=== PATIENT | female | born 1960 | race Caucasian/White ===

== ENCOUNTER 2018-02-22 07:08 | Inpatient (IN) | payer BC ==
[2018-01-31 13:41] VITALS: BMI 39.0
--- NOTE | 2018-02-09 08:17 | History and Physical ---
History & Physical Date of Service Feb 09, 2018. History & Physical PROCEDURE: Left knee replacement. HISTORY OF PRESENT ILLNESS: The patient is a angi 57-year-old female who presents for preop evaluation prior to left knee replacement. She states she has been having pain in this knee for several years now, which has gradually worsened and is now affecting her ADLs including walking, standing and using stairs. She takes oral anti-inflammatories with no relief, has tried viscosupplementation without relief including Synvisc One. She also had a previous knee arthroscopy. At this point in time, she has failed conservative measures and after discussing further care, elected to proceed with a left knee replacement. PAST MEDICAL HISTORY: 1. Diabetes. 2. High cholesterol. 3. Hypertension. 4. Hypothyroidism. ALLERGIES: 1. DEMEROL CAUSES HER TO FAINT. 2. PENICILLIN CAUSES HIVES. 3. SULFA CAUSES HIVES. CURRENT MEDICATIONS: 1. Metformin 500 mg b.i.d. 2. Atorvastatin 10 mg daily. 3. Mirtazapine 30 mg daily. 4. Irbesartan 150 mg daily. 5. Levothyroxine 100 mcg daily. PAST SURGICAL HISTORY: 1. Tonsillectomy. 2. Breast biopsy. 3. Previous knee arthroscopies. 4. Tubal ligation. 5. Rectal surgery. 6. Right knee replacement 2016 FAMILY HISTORY: Noncontributory. SOCIAL HISTORY: She denies a history of smoking or tobacco use. No alcohol consumption. REVIEW OF SYSTEMS: Otherwise negative. Please see HPI for pertinent positives. PHYSICAL EXAMINATION: GENERAL: Angi 57-year-old female, in no acute distress, alert and oriented x3. VITAL SIGNS: She is 5 feet 2 inches, weighs 233 pounds. BMI is 42. Blood pressure is 144/82, pulse 74, and O2 sat 96%. HEENT: Normocephalic, atraumatic. CARDIAC: Regular rate and rhythm. No murmurs or gallops appreciated. Resting pulse 74 beats minute. LUNGS: Clear to auscultation without rales or wheeze bilaterally. ABDOMEN: Soft, nontender. Bowel sounds present. EXTREMITIES: Left lower extremity is neurovascularly intact. Calves are soft and nontender. DP pulse +2 demonstrates good quad tone. Straight leg raise without lag. There is no erythema or warmth. Has mild effusion. Positive crepitation with motion, range of motion is 0/3/115. knee is ligamentously stable. IMAGING: Reviewed of the left knee shows findings consistent with degenerative joint disease including joint space narrowing, subchondral sclerosis, and peripheral osteophytes noted. Joint space narrowing most pronounced in the medial compartment and patellofemoral joint. IMPRESSION: 1. Left knee degenerative joint disease. 2. Type 2 diabetes. 3. Hypertension. 4. Hypothyroidism. PLAN: Further care discussed with patient. At this point, failed conservative measures and would like to proceed with a left knee replacement. We will place on aspirin 81 mg p.o. b.i.d. for a month postop. We will also make arrangements for community mental health social worker for home health physical therapy for 2 weeks post-op.
[2018-02-22] VITALS (7 sets, daily range): BP systolic 96–149; BP diastolic 58–79; PULSE 53–74; TEMP 36.3–36.9; O2SAT 92–96; Ht 158.8 cm; Wt 100.0 kg
[~2018-02-22] VITALS: Ht 158.8 cm; Wt 100.0 kg
[2018-02-22] MEDS: TRANEXAMIC ACID INJ 1,000 MG x 2 Bags IV SCH ×4 (06:30→10:34)
[~2018-02-22 07:08] MED LIST: ACETAMINOPHEN 500 MG TAB PO SCH; ATOR10TA82 PO; CLINDAMYCIN 600 MG/54 ML D5W 54 ML IV SCH; CeleBREX 200 MG CAP PO SCH; DEXAMETHASONE 4 MG TAB PO SCH; DICL1SOL6 EX; ELUX1TAB PO; FAMOTIDINE 20 MG TAB PO SCH; GABAPENTIN 600 MG PO SCH; IRBE-37 PO; LACTATED RINGER'S 1000ML 1,000 ML IV SCH; LACTATED RINGER'S 1000ML 500 ML IV SCH; LEVO100C2 PO; METF750T PO; METOCLOPRAMIDE HCL 10 MG TAB PO SCH; MIRT30TA2 PO; ROPIVACAINE 5MG/ML 30 ML 150 MG, BUPIVACAINE 0.5% MPF INJ 30 ML, EpINEphrine HCL INJ 0.... INFIL SCH
--- NOTE | 2018-02-22 08:15 | History & Physical Bridge Note ---
H&P Re-Evaluation Bridge Note: I have examined the patient, reviewed the History & Physical and in the interval since the performance of the History & Physical I have noted the following changes of clinical significance: No changes noted
[2018-02-22] MEDS ORDERED: ORTHO JOINT ANESTHETIC ONE (10:04)
[2018-02-22] MEDS ORDERED: POVIDONE-IODINE OP SOLN 30 ML BTL ONE (10:05)
[2018-02-22] MEDS ORDERED: BACITRACIN 50000 UNIT VIAL ONE (10:05)
[2018-02-22] MEDS ORDERED: PROPOFOL IV EMULSION 10 MG/ML 20 ML VIAL ONE ×2 (10:18→12:50)
[2018-02-22] MEDS ORDERED: LIDOCAINE HCL 2% 2 ML VIAL (20MG/ML) ONE (10:18)
[2018-02-22] MEDS ORDERED: MIDAZOLAM HCL 1 MG/ML 2ML VIAL ONE ×3 (10:18→11:49)
[2018-02-22] MEDS ORDERED: FENTANYL CITRATE INJ 50 MCG/1 ML 2 ML VIAL ONE (10:19)
[2018-02-22] MEDS ORDERED: ROPIVACAINE 0.5% 5 MG/ML 30 ML VIAL ONE (10:31)
[2018-02-22] MEDS ORDERED: ATROPINE SULFATE 0.1 MG/ML 5ML SYR IV PRN (10:45)
[2018-02-22] MEDS ORDERED: PHENYLEPHRINE 100MCG/ML 5ML SYR IV PRN (10:45)
[2018-02-22] MEDS ORDERED: ONDANSETRON INJ 2 MG/ML 2 ML VIAL IV PRN ×2 (10:45→13:00)
[2018-02-22] MEDS ORDERED: EpHEDrine SULFATE INJ 50 MG/ML AMP IV PRN (10:45)
[2018-02-22] MEDS ORDERED: KETOROLAC TROMETHAMINE 30 MG/ML VIAL IV. PRN (10:45)
[2018-02-22] MEDS ORDERED: HYDROmorphone INJ 2 MG/ML SYR/VIAL IV PRN (10:45)
--- NOTE | 2018-02-22 12:08 | [facility] Post Operative Brief Note ---
Immediate Operative Summary Operative Date Feb 22, 2018. Pre-Operative Diagnosis Degenerative Joint Disease, Left Knee Post-Operative Diagnosis Degenerative Joint Disease, Left Knee Procedure(s) Performed Left Total Knee Arthroplasty utilizing Clayton nephPurplu nonblock journey to size 4 femur 3 tibia 9 [place] [address] Sangeetha Altman Permaculture Designer Surgeon(s) Sangeetha Valiente PA-C Estimated Blood Loss 10cc Findings Consistent with Post-Op Diagnosis Specimens a. Bone and Tissue, Left Knee Anesthesia Type General Regional Disposition Disposition: Recovery Room / PACU Overlapping Procedure I was present for: the critical portions of procedure. I was immediately available: during the entire case Back up surgeon: was not required during procedure
--- NOTE | 2018-02-22 12:09 | [facility] Operative Report ---
Operative Report Operative Date Feb 22, 2018. Pre-Operative Diagnosis Degenerative Joint Disease, Left Knee Post-Operative Diagnosis Degenerative Joint Disease, Left Knee Procedure(s) Performed Left Total Knee Arthroplasty utilizing Clayton nephLiveLeaf nonblock journey to size 4 femur 3 tibia 9 Morena [address] Sangeetha Altman Blister Packaging Machine Operator Surgeon(s) Sangeetha Valiente PA-C Estimated Blood Loss 10cc Findings Patient presents with severe end-stage tricompartmental degenerative joint disease left knee with no response to conservative therapy time surgery noted and subchondral sclerosis cystic changes osteophytes eburnated bone on bone pseudo-ligamentous laxity of medial compartment patellofemoral crepitation medial and lateral joint line pain and tenderness with a moderate to large joint effusion Specimens a. Bone and Tissue, Left Knee Anesthesia Type General Regional Complication(s) none Disposition Recovery Room / PACU Indications Patient presents with ongoing complaints of left knee pain after failed attempts at conservative management including physical therapy anti- inflammatories relative rest activity modification corticosteroid injection viscous limitations she has previously undergone successful right total knee arthroplasty quite pleased with this she presents today for left total knee arthroplasty Description of Procedure After proper prepping and draping of the left lower extremity anterior midline incision was made over the region of the extensor extensor mechanism after meticulous hemostasis was obtained and maintained in subcutaneous tissues a medial parapatellar incision was made The patella was subluxed lateralward the medial lateral gutter were cleaned from any hypertrophic synovitis and scar tissue of the distal femoral block was placed and the distal femoral osteotomy cut was made subsequently the chamfers anterior and posterior osteotomy cuts were made utilizing the 4-in-1 block the tibia was subsequently subluxed anteriorward medial and ateral meniscal remnants were excised in their entirety remnants of the anterior and posterior cruciate ligaments were excised in their entirety excellent exposure of the proximal tibia was obtained the tibial osteotomy guide was placed on the proximal tibial osteotomy cut was made once again the knee was irrigated with copious amounts of sterile saline solution the patella was subsequently everted lateralward thickened scar tissue around the patella was removed the patella was subsequently cut utilizing a freehand technique and was drilled prepared for final preparation and placement of patella socially flexion-extension gaps were checked and the equal and symmetric trials were placed to the appropriate femoral and tibial trials with poly-spacer being placed for equal flexion and extension gaps and full range of motion including extension to 0 and flexion to 140 the trial components after having been taken to recovery range of motion was subsequently removed meticulous hemostasis was obtained and maintained subsequently a knee block injection of joint cocktail including ropivacaine 0.5% 150 mg. Bupivacaine 0.5 % epinephrine 1-200,030 mL's toradol 30 mg dexamethasone 4 mg ketamine 10 mg clonidine 100 micrograms normal saline solution 30 mg was infiltrated into the soft tissues of the posterior knee medial lateral gutters and periosteal synovium special attention was paid to protect neurovascular structures at all times subsequently trial components having been removed the knee was irrigated with sterile saline solution. debris was removed the proximal tibia was subsequently prepared and was made ready for the placement of the tibial component tibial component was also cemented and tamped into position the femoral component was subsequently placed and cemented in the position the patellar component was subsequently cemented in position because hemostasis once again obtained and maintained wound having been thoroughly irrigated with debridement and debridement lavage was performed as well as a medial parapatellar incision closed with #1 Vicryl in interrupted fashion subcutaneous was closed with #2 Vicryl skin was closed with skin clips. PA-C was necessary for prepping and drapping as well as wound closure of deep fascia Sub cutaneous tissue and skin and was necessary for the case. A sterile compressive dressing was placed patient was taken to recovery in stable condition of report dictated by Agapito I attest to the content of the Intraoperative Record and any orders documented therein. Any exceptions are noted below. I attest to the content of the Intraoperative Record and any orders documented therein. Any exceptions are noted below.
[2018-02-22] MEDS ORDERED: BISACODYL 10 MG SUPP PR PRN (13:00)
[2018-02-22] MEDS ORDERED: MoRPHine SULFATE 2 MG/ML CARP IV PRN (13:00)
[2018-02-22] MEDS ORDERED: ALUMINUM/MAGNESIUM/SIMETH (MAALOX MAX) 30 ML UDC PO PRN (13:00)
[2018-02-22] MEDS ORDERED: MAGNESIUM HYDROXIDE SUSP 30 ML UDC PO PRN (13:00)
--- NOTE | 2018-02-22 13:19 | DIAGNOSTIC IMAGING REPORT ---
L KNEE 1 OR 2 VIEWS ROUTINE CLINICAL HISTORY: AP/LATERAL IN PACU LEFT KNEE COMPARISON: None. DISCUSSION: Anatomic alignment post total left knee arthroplasty. Good contact between prosthetic and underlying bone. Surgical drains are in position. Expected soft tissue postoperative change IMPRESSION: Anatomic alignment post total left knee arthroplasty. The above report was generated using voice recognition software. It may contain grammatical, syntax or spelling errors. Electronically signed by: aDniele Yusuf M.D. 02/22/2018 1:17 PM Dictated Date/Time: 02/22/2018 1:14 PM
[2018-02-22] MEDS ORDERED: PHARMACY GLYCEMIC MGMT CONSULT PRN (13:22)
--- NOTE | 2018-02-22 13:42 | Anesthesiology Progress Note ---
Anesthesia Post Op Note Date & Time Feb 22, 2018 at 13:42 Vital Signs Pain Intensity: 0 Vital Signs Past 12 Hours Date Time Temp Pulse Resp B/P (MAP) Pulse Ox O2 Delivery O2 Flow Rate FiO2 02/22/18 13:20 36.4 76 16 123/64 96 Nasal Cannula 2 02/22/18 13:10 79 16 137/66 97 Nasal Cannula 2 02/22/18 13:00 77 16 122/70 97 Nasal Cannula 2 02/22/18 12:51 36.6 84 16 130/67 98 Oxymask 10 02/22/18 07:58 36.6 58 16 149/74 96 Room Air Notes Mental Status: alert / awake / arousable, participated in evaluation Pt Amnestic to Procedure: Yes Nausea / Vomiting: adequately controlled Pain: adequately controlled Airway Patency, RR, SpO2: stable & adequate BP & HR: stable & adequate Hydration State: stable & adequate Anesthetic Complications: no major complications apparent
[2018-02-22] MEDS ORDERED: INSULIN GLARGINE SOLOSTAR 100 UNITS/ML 3 ML PEN SC ONE (14:00)
--- NOTE | 2018-02-22 14:11 | Pharmacy Progress Note ---
Glycemic Control Intl Consult Date of Service Feb 22, 2018. Scope Glycemic Pharmacist consulted by Arsh Valiente on 02/22 for glycemic control and to write orders per [facility] inpatient glycemic control protocol Objective Weight (Kilograms): 100 Accuchecks BSG (last 24hrs): Test 02/22/18 07:50 02/22/18 12:55 Bedside Glucose 108 mg/dl (70-90) 124 mg/dl (70-90) Recent Pertinent Medications Outpatient Anti-diabetic Regimen: * Metformin ER 750 mg po daily * A1c = 9.1 % on 12/07/17 Risk Factors for Insulin Resistance: * Steroids: Dexamethasone 8 mg po x1 plus dexamethasone in ortho mix x1 * Recent Surgery: POD 0 s/p L TKA * Diet: T2DM Assessment & Plan ASSESSMENT: * 57 yo F with poorly controlled T2DM on single oral diabetes agent at home now post-op TKA and steroid administration * Tighter glycemic control post-op desired - would ideally like all BSG's to be 100-140 mg/dL * Will give Lantus x1 today at moderate to severe stress weight-based 1/2 daily estimate per calculator. Additional Lantus tonight for BSG > 160 mg/dL * Will initiate Novolog at severe stress weight-based estimate per calculator 2nd steroid use. Two overnight checks. PLAN FOR INPATIENT GLYCEMIC CONTROL: * Holding outpatient oral diabetes medications * Basal insulin with LANTUS 20 units SQ x1 now. Additional 10 units tonight @ 0000 for BSG > 160 mg/dL * Correctional Insulin with NOVOLOG per scale ACHS or Q6hrs while NPO - two overnight checks * Goal Range: Low 120 mg/dL - High 150 mg/dL * Correction Factor: 15 mg/dL/unit * Nutritional / Prandial insulin per carb ratio of 1 unit per 5 grams CHO consumed * Please note that the plan above was derived based on current level of insulin resistance and hospital stress. These recommendations are appropriate for inpatient admission only. Plan of care upon discharge will need to be reassessed to avoid potential outpatient hypo/hyperglycemia. Thank you.
[2018-02-22] MEDS: KETOROLAC TROMETHAMINE 30 MG/ML VIAL IV. SCH ×2 (16:02→21:40)
[2018-02-22] MEDS: FERROUS GLUCONATE 324 MG TAB PO SCH (17:42)
[2018-02-22] MEDS: SODIUM CHLORIDE 0.9% 1000ML 1,000 ML IV SCH (17:51)
[2018-02-22] MEDS: INSULIN ASPART 100 UNITS/ML 3 ML PEN SC SCH ×2 (17:57→21:47)
[2018-02-22] MEDS: CLINDAMYCIN IV 600 MG in DEXTROSE 5% 50ML 50 ML IV SCH (19:41)
[2018-02-22] MEDS ORDERED: PNEUMOCOCCAL POLYSACCHARIDES 25 MCG/0.5 ML VIAL/SYR IM. ONE (20:00)
[2018-02-22] MEDS ORDERED: PNEUMOCOCCAL ADMINISTRATION CHARGE ONE (20:00)
[2018-02-22] MEDS: DOCUSATE SODIUM 100 MG CAP PO SCH (21:37)
[2018-02-22] MEDS: SENNA 8.6 MG TAB PO SCH (21:37)
[2018-02-22] MEDS: ASPIRIN 81 MG ECTAB PO SCH (21:37)
[2018-02-22] MEDS: MIRTAZAPINE SOLTAB 15 MG PO SCH (21:38)
[2018-02-22] MEDS: ATORVASTATIN 10 MG TAB PO SCH (21:39)
[2018-02-22] MEDS: ACETAMINOPHEN 500 MG TAB PO SCH (21:40)
[2018-02-23] VITALS (7 sets, daily range): BP systolic 94–109; BP diastolic 52–64; PULSE 42–69; TEMP 36.5–36.9; O2SAT 93–97
[2018-02-23] MEDS ORDERED: INSULIN ASPART 100 UNITS/ML 3 ML PEN SC SCH
[2018-02-23] MEDS: CLINDAMYCIN IV 600 MG in DEXTROSE 5% 50ML 50 ML IV SCH (04:13)
[2018-02-23] MEDS: KETOROLAC TROMETHAMINE 30 MG/ML VIAL IV. SCH ×2 (04:13→09:32)
[2018-02-23] MEDS: SODIUM CHLORIDE 0.9% 1000ML 1,000 ML IV SCH (04:13)
[2018-02-23] MEDS: ACETAMINOPHEN 500 MG TAB PO SCH ×3 (05:40→21:25)
[2018-02-23 06:06] LABS: HEMATOCRIT 35.2 % (37-47); HEMOGLOBIN 11.9 g/dL (12.0-16.0); MEAN CELL VOLUME 83.6 fL (80-100); MEAN CORPUSCULAR HEMOGLOBIN 28.3 pg (25-34); MEAN CORPUSCULAR HGB CONC 33.8 g/dl (32-36); PLATELET COUNT 242 K/uL (130-400); WHITE BLOOD COUNT 16.47 K/uL (4.8-10.8)
[2018-02-23 06:11] LABS: INR 1.1 (0.9-1.1)
[2018-02-23 06:44] LABS: CALCIUM 7.9 mg/dl (8.5-10.1); CREATININE 0.65 mg/dl (0.60-1.20); POTASSIUM 3.8 mmol/L (3.5-5.1)
--- NOTE | 2018-02-23 07:41 | Orthopedic Progress Note ---
Orthopedic Progress Note Date of Service Feb 23, 2018. Subjective Post OP Day: 1 Reports: feeling well Objective N/V intact, dressing C/D/I (Hemovac in place(200ml output overnight)), toes mobile Date Time Temp Pulse Resp B/P (MAP) Pulse Ox O2 Delivery O2 Flow Rate FiO2 02/23/18 04:15 Room Air 02/23/18 03:47 36.8 52 15 97/52 (67) 94 Room Air 02/23/18 00:02 36.9 51 16 96/59 (71) 94 Room Air 02/22/18 19:35 Room Air 02/22/18 19:10 36.9 74 17 106/63 (77) 92 Room Air 02/22/18 16:40 36.8 53 17 104/58 (73) 95 Room Air 02/22/18 16:00 95 Nasal Cannula 2.0 02/22/18 15:35 36.3 54 16 96/61 (73) 95 Nasal Cannula 2.0 02/22/18 14:13 36.6 54 15 123/66 (85) 94 Nasal Cannula 2.0 02/22/18 13:40 95 Nasal Cannula 2.0 02/22/18 13:40 36.6 72 16 130/79 (96) 95 Nasal Cannula 2.0 02/22/18 13:40 Nasal Cannula 2.0 02/22/18 13:20 36.4 76 16 123/64 96 Nasal Cannula 2 02/22/18 13:10 79 16 137/66 97 Nasal Cannula 2 02/22/18 13:00 77 16 122/70 97 Nasal Cannula 2 02/22/18 12:51 36.6 84 16 130/67 98 Oxymask 10 02/22/18 07:58 36.6 58 16 149/74 96 Room Air Laboratory Results 24 Hours: Test 02/23/18 05:43 Hematocrit 35.2 % Hemoglobin 11.9 g/dL Prothromb Time International Ratio 1.1 Prothrombin Time 11.1 SECONDS Assessment & Plan Assessment: 57 yo female stable POD #1 s/p left TKA Plan: 1. Med management 2. DVT prophylaxis- ASA, SCDs 3. PT/OT 4. D/C planning- home w/ OPPT
[2018-02-23] MEDS: FERROUS GLUCONATE 324 MG TAB PO SCH ×3 (08:50→18:26)
[2018-02-23] MEDS: IRBESARTAN 150 MG TAB PO SCH (08:51)
[2018-02-23] MEDS: ASPIRIN 81 MG ECTAB PO SCH ×2 (08:51→21:18)
[2018-02-23] MEDS: DOCUSATE SODIUM 100 MG CAP PO SCH ×2 (08:51→21:18)
[2018-02-23] MEDS: MULTIVITAMIN TAB PO SCH (08:52)
[2018-02-23] MEDS: INSULIN ASPART 100 UNITS/ML 3 ML PEN SC SCH ×4 (08:57→21:00)
--- NOTE | 2018-02-23 09:00 | Anesthesiology Progress Note ---
Anesthesia Post Op Note Date & Time Feb 23, 2018 at 08:59 Vital Signs Pain Intensity: 0.0 Vital Signs Past 12 Hours Date Time Temp Pulse Resp B/P (MAP) Pulse Ox O2 Delivery O2 Flow Rate FiO2 02/23/18 07:40 36.5 48 15 100/63 (75) 94 Room Air 02/23/18 07:20 Room Air 02/23/18 04:15 Room Air 02/23/18 03:47 36.8 52 15 97/52 (67) 94 Room Air 02/23/18 00:02 36.9 51 16 96/59 (71) 94 Room Air Notes Mental Status: alert / awake / arousable, participated in evaluation Pt Amnestic to Procedure: Yes Nausea / Vomiting: adequately controlled Pain: adequately controlled Airway Patency, RR, SpO2: stable & adequate BP & HR: stable & adequate Hydration State: stable & adequate Neuraxial Anesthesia: sensory block resolved Anesthetic Complications: no major complications apparent
--- NOTE | 2018-02-23 09:13 | Discharge Instructions ---
Discharge Instructions Date of Service Feb 23, 2018. Admission Reason for Admission: Discharge Discharge Diagnosis / Problem: left total knee replacement Discharge Goals Goal(s): Decrease discomfort, Improve function, Increase independence Activity Recommendations Activity Limitations: as noted below Weightbearing Status: Left weightbearing (as tolerated) . Instructions / Follow-Up Instructions / Follow-Up ACTIVITY RECOMMENDATIONS: SELF CARE INSTRUCTIONS AFTER TOTAL KNEE REPLACEMENT A. You may need to continue a physical therapy program after discharge from the hospital. There are several options available to you. Your doctor will assist you in selecting the best one for you. 1. An out-patient facility 2 to 3 times a week for therapy or home therapy. 2. Continue working on all exercises taught to you in the hospital. Your goals should be to increase bending of your knee to 90 degrees and beyond and to fully straighten your knee. B. You may progress at your own pace from walking with a walker or crutches to a cane; then to no assistive devices. C. Make walking a part of your daily routine. Be up as much as comfortable with rest periods throughout the day. Rest with leg elevation is very important. Use the ice wrap frequently for the first 3-4 weeks. D. There are no restrictions on activities. You may ride in a car, shop, participate in payable manager and all social activities. E. Wear the long elastic stockings (ALOK hose) 20 hours a day for 2 weeks after surgery. They can be removed several times a day for laundering and for a bath. F. You may shower, no tub baths until cleared by your doctor. SPECIAL CARE INSTRUCTIONS: VERY IMPORTANT TO READ AND REVIEW A. There are a few signs you need to watch for after you are home. Call [facility] if you notice any of the followin. Increased severe knee pain. Some pain is expected especially when you exercise. 2. Increased swelling in your leg or knee; pain or swelling of the calf muscle in either lower leg. 3. Any fluid drainage from the incision. 4. Shortness of breath or chest pain. B. Please call [facility] at if you have any concerns or questions about your operation or recovery. The doctor or his nurse will return your call promptly. C. You must take antibiotics before dental work, bladder, bowel or other surgery. Your doctor will provide you with a permanent care to carry describing this precaution. IMPORTANT: * REMEMBER TO TAKE ASPIRIN, 81 MG, TWICE DAILY FOR 4 WEEKS UNLESS OTHERWISE DIRECTED. THIS IS YOUR BLOOD THINNER. * HIGH RISK PATIENTS MAY BE PRESCRIBED A STRONGER BLOOD THINNER. THIS WILL BE PROVIDED AT DISCHARGE. * CALL IF INCREASED PAIN, REDNESS, DRAINAGE OR FEVER GREATER THAT 101. * WEAR ALOK HOSE 20 HOURS PER DAY FOR 2 WEEKS. * YOU MAY HAVE A LARGE BAND-AID LIKE DRESSING (SILVERON). THIS WILL REMAIN ON YOUR INCISION FOR 7 DAYS, THEN CAN BE REMOVED. IF INCISION IS LEAKING THROUGH DRESSING, CALL THE OFFICE . DERMABOND Prineo- This is a mesh tape dressing that is covered with glue. It should remain in place until the incision is properly healed, usually 10-14 days. This dressing is designed to naturally slough off. You may trim the excess mesh tape as it peels off. Incision may be briefly wet in a shower. Dry immediately by blotting with a clean, dry towel. Do not bath or swim until instructed by your doctor. Do not scratch, rub, or pick at the dressing. Do not apply any topical ointments or lotions until dressing is completely removed and/or instructed by your doctor. There may be a small piece of suture material at one end of your incision. Do not pull or trim this. If it is bothersome or catching on clothing, you may cover it with a band-aid. Prevena- This is a large suction dressing covering your incision. This will help pull any excess drainage from the wound and allow your incision to heal properly. You may shower with this if you can keep the unit outside of the shower. If any bleeding or leakage is noted please call your doctor's office. This will remain on your incision for 7 days and then should be removed. This can be done yourself or by the home nursing staff if applicable. The entire unit is disposable once removed. Once removed, keep incision clean and dry. If redness or drainage is noted, please call your surgeon. FOLLOW UP VISIT: If appointment is not already scheduled: Please call [facility] to make a follow-up appointment for 2 weeks after your surgery at . Current Hospital Diet Patient's current hospital diet: Diabetes Type 2 Diet Discharge Diet Recommended Diet: Diabetes Type 2 Diet Procedures Procedures Performed: Left Total Knee Arthroplasty Pending Studies Studies pending at discharge: no Laboratory Results Hemoglobin A1c Test 12/07/17 12:50 Range/Units Estimated Average Glucose 214 mg/dl Hemoglobin A1c 9.1 H 4.5-5.6 % Medical Emergencies . Who to Call and When: Medical Emergencies: If at any time you feel your situation is an emergency, please call 911 immediately. . Non-Emergent Contact Non-Emergency issues call your: Primary Care Provider, Surgeon . "Provider Documentation" section prepared by Daniele Malone. . [place] Drug Monitoring Program Search Results: patient reviewed within database, no issues identified
[2018-02-23] MEDS: OXYCODONE HCL IR 5 MG TAB (IMMEDIATE RELEASE) PO PRN ×2 (09:35→15:44)
[2018-02-23] MEDS ORDERED: INSULIN GLARGINE SOLOSTAR 100 UNITS/ML 3 ML PEN SC ONE ×2 (13:30)
--- NOTE | 2018-02-23 14:18 | Pharmacy Progress Note ---
Glycemic Control Progress Note Date of Service Feb 23, 2018. Scope Glycemic Pharmacist consulted for glycemic control to write orders per [facility] inpatient glycemic control protocol. Objective Accuchecks BSG (last 24hrs): Test 02/22/18 14:22 02/22/18 17:12 02/22/18 20:49 02/23/18 00:03 Bedside Glucose 146 mg/dl (70-90) 154 mg/dl (70-90) 171 mg/dl (70-90) 129 mg/dl (70-90) Test 02/23/18 05:43 02/23/18 08:05 02/23/18 12:14 Random Glucose 134 mg/dl (70-99) Bedside Glucose 115 mg/dl (70-90) 129 mg/dl (70-90) Recent Pertinent Medications Outpatient Anti-diabetic Regimen: * Metformin ER 750 mg po daily * A1c = 9.1 % on 12/07/17 Risk Factors for Insulin Resistance: * Steroids: Dexamethasone 8 mg po x1 plus dexamethasone in ortho mix x1 * Recent Surgery: POD 1 s/p L TKA * Diet: T2DM Assessment & Plan ASSESSMENT: 02/22/18 * 57 yo F with poorly controlled T2DM on single oral diabetes agent at home now post-op TKA and steroid administration * Tighter glycemic control post-op desired - would ideally like all BSG's to be 100-140 mg/dL * Will give Lantus x1 today at moderate to severe stress weight-based 1/2 daily estimate per calculator. Additional Lantus tonight for BSG > 160 mg/dL * Will initiate Novolog at severe stress weight-based estimate per calculator 2nd steroid use. Two overnight checks. 02/23/18 * BSG's with most ranging 115-154 mg/dL over the last 24 hours (one elevated to 171 mg/dL) * Will continue Lantus to help ensure most BSG's 100-140 mg/dL, but will reduce dose as steroid effects are likely dissipating * Will loosen Novolog to weight-based moderate stress estimate (with slightly tighter CHO ratio as some steroid effects are likely persisting at this time) * OK to decrease goal range so patient will receive correctional insulin for any BSG > 140 mg/dL * No overnight checks needed as BSG's are well controlled today * Anticipate possible resuming of home metformin tomorrow AM PLAN FOR INPATIENT GLYCEMIC CONTROL: * Holding outpatient oral diabetes medications - will consider re-starting metformin tomorrow AM * Decrease basal insulin with LANTUS 10 units SQ x1 @ 1400 * Correctional Insulin with NOVOLOG per scale ACHS or Q6hrs while NPO * Decrease Goal Range: Low 110 mg/dL - High 140 mg/dL * Loosen Correction Factor: 25 mg/dL/unit * Loosen Nutritional / Prandial insulin per carb ratio of 1 unit per 7 grams CHO consumed * Please note that the plan above was derived based on current level of insulin resistance and hospital stress. These recommendations are appropriate for inpatient admission only. Plan of care upon discharge will need to be reassessed to avoid potential outpatient hypo/hyperglycemia. Thank you.
[2018-02-23] MEDS: MIRTAZAPINE SOLTAB 15 MG PO SCH (21:18)
[2018-02-23] MEDS: SENNA 8.6 MG TAB PO SCH (21:18)
[2018-02-23] MEDS: ATORVASTATIN 10 MG TAB PO SCH (21:18)
[2018-02-23] MEDS: ELUXADOLINE 75 MG PO SCH (21:19)
[2018-02-24] MEDS: OXYCODONE HCL IR 5 MG TAB (IMMEDIATE RELEASE) PO PRN ×3 (00:27→11:03)
[2018-02-24 00:37] VITALS: BP 152/60; PULSE 45; O2SAT 97
[2018-02-24 00:47] VITALS: BP 151/80; PULSE 53; TEMP 36.5; O2SAT 93
[2018-02-24 01:02] VITALS: BP 124/77; PULSE 52; O2SAT 98
[2018-02-24] MEDS: TRAMADOL HCL 50 MG TAB PO PRN ×2 (02:38→07:38)
[2018-02-24] MEDS: ACETAMINOPHEN 500 MG TAB PO SCH (05:44)
[2018-02-24] MEDS ORDERED: LEVOTHYROXINE 100 MCG TAB PO SCH (06:00)
[2018-02-24 07:01] VITALS: BP 110/70; PULSE 57; TEMP 36.5; O2SAT 96
[2018-02-24] MEDS ORDERED: ONDA-170 PO (07:13)
[2018-02-24] MEDS ORDERED: RXC5 PO (07:13)
[2018-02-24] MEDS ORDERED: ASPI-461 PO (07:13)
[2018-02-24] MEDS ORDERED: ACET-24 PO (07:13)
[2018-02-24] MEDS ORDERED: CLC100 PO (07:13)
--- NOTE | 2018-02-24 07:27 | Orthopedic Progress Note ---
Orthopedic Progress Note Date of Service Feb 24, 2018. Subjective Post OP Day: 2 Reports: feeling well, pain controlled w PO medications, Denies: complaints, chest pain, SOB, nausea / vomiting, light headedness, calf pain Objective calves soft nontender, N/V intact, capillary refill less than 2 sec., incision C /D/I, A&O x3, toes mobile Date Time Temp Pulse Resp B/P (MAP) Pulse Ox O2 Delivery O2 Flow Rate FiO2 02/24/18 07:01 36.5 57 16 110/70 (83) 96 Room Air 02/24/18 01:02 52 16 124/77 (93) 98 Room Air 02/24/18 00:47 36.5 53 16 151/80 (103) 93 Room Air 02/24/18 00:37 45 18 152/60 (90) 97 Room Air 02/24/18 00:30 Room Air 02/23/18 23:02 36.8 69 16 109/64 (79) 93 Room Air 02/23/18 15:59 96 Room Air 02/23/18 15:26 36.7 53 16 101/61 (74) 96 Room Air 02/23/18 11:55 36.6 42 14 94/60 (71) 97 02/23/18 07:40 36.5 48 15 100/63 (75) 94 Room Air Assessment & Plan Assessment: 57 yo female stable POD #2 s/p left TKA Plan: 1. Med management 2. DVT prophylaxis- ASA, SCDs 3. PT/OT 4. D/C planning- home w/ OPPT, likely after PT today Inhouse Planning DVT Prophylaxis: TEDs, SCDs, ASA Discharge Planning Discharge Planning: home with oppt DVT Prophylaxis: TEDs, SCDs, ASA
[2018-02-24] MEDS: ELUXADOLINE 75 MG PO SCH (07:32)
[2018-02-24] MEDS: ASPIRIN 81 MG ECTAB PO SCH (07:32)
[2018-02-24] MEDS: IRBESARTAN 150 MG TAB PO SCH (07:33)
[2018-02-24] MEDS: INSULIN ASPART 100 UNITS/ML 3 ML PEN SC SCH (07:47)
[2018-02-24] MEDS ORDERED: METFORMIN HCL 850 MG TAB PO SCH (09:00)
[2018-02-24] MEDS: MULTIVITAMIN TAB PO SCH (09:44)
[2018-02-24] MEDS: DOCUSATE SODIUM 100 MG CAP PO SCH (09:44)
[2018-02-24] MEDS: FERROUS GLUCONATE 324 MG TAB PO SCH (09:44)
[2018-02-24 11:09] VITALS: BP 110/70; PULSE 57; TEMP 36.5; O2SAT 96
--- NOTE | 2018-02-28 15:35 | DISCHARGE SUMMARY ---
DISCHARGE DIAGNOSIS: Degenerative joint disease, left knee. SECONDARY DIAGNOSES: Diabetes mellitus, hypertension, hypothyroidism. CONSULTS: None. COMPLICATIONS: None. PROCEDURES: Left total knee arthroplasty performed by Dr. Altman on 02/22/2018. BRIEF HISTORY: As dictated in the history and physical. HOSPITAL SUMMARY: The patient was admitted on the above-noted date and had the above-noted surgery performed which she tolerated well. On the first postoperative day, the patient was feeling well, neurovascularly intact. Dressings clean, dry and intact. Toes were mobile. Vital signs were stable. She was afebrile and hemoglobin was 11.9. She was started on physical therapy protocol and continued on DVT prophylaxis and pain management. By her second postoperative day, she was feeling well, pain was controlled. Calves were soft, nontender. Neurovascularly intact. Incision was benign. Toes were mobile. Vital signs were stable. She was afebrile. She was progressing with her physical therapy and it was felt she could be discharged home with outpatient PT on 02/24/2018. For further review, please see chart. LAB AND X-RAY DATA: As per chart. DISCHARGE INSTRUCTIONS: The patient was discharged home in satisfactory condition on 02/24/2018. DIET: Diabetic. ACTIVITY: Weightbearing as tolerated, left lower extremity. Follow TK instruction sheets and special care instructions as noted. Follow up with Dr. Altman in 2 weeks. The patient to call for appointment if one has not been made for you. DISCHARGE MEDICATIONS: Acetaminophen 1000 mg p.o. q. 8 hours, aspirin 81 mg p.o. b.i.d., Colace 100 mg p.o. b.i.d., Zofran 8 mg p.o. q. 8 hours p.r.n. nausea, oxycodone 5-10 mg p.o. q. 4 hours p.r.n. Resume home meds as listed and stop taking diclofenac. MTDD
== END 2018-02-24 12:15 | disposition home or self-care (01) | DRG 470 ==
LOC: C.ACU 07:08 → C.3E 08:11 → ENRESERV 13:22
PROVIDERS: ADMIT Orthopaedic Surgery; ATTEND Orthopaedic Surgery
PROC: 0SRD0J9 Replacement of Left Knee Joint with Synthetic Substitute, Cemented, Open Approach (ICD-10-PCS; principal; 2018-02-22 09:45)
DX: M17.12 Unilateral primary osteoarthritis, left knee (principal); E11.9 Type 2 diabetes mellitus without complications; I10 Essential (primary) hypertension; E78.00 Pure hypercholesterolemia, unspecified; E03.9 Hypothyroidism, unspecified; Z79.899 Other long term (current) drug therapy; Z79.84 Long term (current) use of oral hypoglycemic drugs; Z96.651 Presence of right artificial knee joint; Z88.0 Allergy status to penicillin; Z88.2 Allergy status to sulfonamides; Z88.5 Allergy status to narcotic agent